=== PATIENT | male | born 1975 | race Caucasian/White ===

== ENCOUNTER 2020-01-22 10:03 | Outpatient (CLI) | payer OTHER ==
--- NOTE | 2020-01-22 10:19 | RAD ---
Exam: XR Knee Rt 4 View STANDARD HISTORY: Right knee pain. Fall one month ago. COMPARISON: None FINDINGS: Tricompartment osteophytosis is present. Subchondral cystic changes are seen at the level of the tibi al spines. No fracture or dislocation is identified. Soft tissue swelling anterior to the patella is present. IMPRESSION: 1. No acute osseous abnormality. 2. Osteoarthritis. 3. Subcutaneous soft tissue swelling anterior to the knee.
== END 2020-01-22 10:04 | disposition home or self-care (01) ==
LOC: BICRAD 10:03
PROVIDERS: ATTEND Physician Assistant
DX: M25.561 Pain in right knee (principal); M17.11 Unilateral primary osteoarthritis, right knee; M79.89 Other specified soft tissue disorders

== ENCOUNTER 2021-12-01 16:40 | Outpatient (CLI) | payer OTHER | END 2021-12-01 16:41 | disposition home or self-care (01) | LOC: RAD-FRANK 16:40 | PROVIDERS: ATTEND Nurse Practitioner Family | DX: F17.200 Nicotine dependence, unspecified, uncomplicated (principal); M47.816 Spondylosis without myelopathy or radiculopathy, lumbar region | CPT/HCPCS: 72100 ==